=== PATIENT | female | born 2000 | race Caucasian/White ===

== ENCOUNTER 2022-11-13 14:29 | Emergency (ER) | payer OTHER ==
[~2022-11-13] VITALS: Ht 162.6 cm; Wt 127.3 kg
[2022-11-13] MEDS ORDERED: PROCHLORPERAZIN10 MG PO (16:59)
[2022-11-13] MEDS ORDERED: ACETAZOLAMIDE500 M1 PO (17:00)
[2022-11-13] MEDS ORDERED: VENLAFAXINE HCL75 MG PO (17:00)
[2022-11-13] MEDS ORDERED: PROCTOFOAM-HC 110 GM PR (17:54)
[2022-11-13 18:53] VITALS: BP 98/68
== END 2022-11-13 18:54 | disposition home or self-care (01) ==
LOC: ED 14:29
DX: K64.4 Residual hemorrhoidal skin tags (principal); Z79.899 Other long term (current) drug therapy; I10 Essential (primary) hypertension
CPT/HCPCS: 99283

== ENCOUNTER 2022-12-29 15:14 | Emergency (ER) | payer OTHER ==
[~2022-12-29] VITALS: Ht 162.6 cm; Wt 134.9 kg
--- OUTSIDE RECORDS SUMMARY | ~2022-12-29 | XMS | Continuity of Care Document ---
Demographics + + + | Address | [address] | | | [place] [address] | + + + | Preferred Language | Unknown | + + + | Marital Status | | + + + | Tenriism Affiliation | Unknown | + + + | Race | White | + + + | Ethnic Group | Not or | + + + Author + + + | Author | [facility] | + + + | Organization | [facility] | + + + | Address | [address] | | | [place], [place] [address] | + + + | Phone | | + + + Care Team Providers + + + + | Care Assistant County Attorney Name | Role | Phone | + + + + Unavailable | Unavailable | + + + + Unavailable | Unavailable | + + + + Allergies No information. Encounters No information. Functional Status No information. Immunizations No information. Medications + + + + | date | description | facility | + + + + | 2022-11-13 00:00 | PROCHLORPERAZINE MALEATE | [facility] | + + + + | 2022-11-13 00:00 | VENLAFAXINE HCL | [facility] | + + + + | 2022-11-13 00:00 | ACETAZOLAMIDE | [facility] | + + + + | 2022-11-13 00:00 | HYDROCORTISONE/PRAMOXINE | [facility] | + + + + Problems + + + + | date | description | facility | + + + + | 2022-11-13 00:00 | Hemorrhoids | [facility] | + + + + Procedures No information. Results/Labs No information. Social History + + + + | date | description | facility | + + + + | 2022-11-13 00:00 | Unknown if ever smoked | [facility] | + + + + Vital Signs + + + +---------+ | date | measurement | value | units | + + + +---------+ | 2022-11-13 00:00 | BMI | 48.2 | kg/m2 | + + + +---------+ | 2022-11-13 00:00 | BP_diastolic | 68 | mmHg | + + + +---------+ | 2022-11-13 00:00 | BP_systolic | 98 | mmHg | + + + +---------+ | 2022-11-13 00:00 | heart_rate | 90 | /min | + + + +---------+ | 2022-11-13 00:00 | height_metric | 162.56 | cm | + + + +---------+ | 2022-11-13 00:00 | height_standard | 64 | in | + + + +---------+ | 2022-11-13 00:00 | o2_saturation | 99 | % | + + + +---------+ | 2022-11-13 00:00 | respiration_rate | 17 | /min | + + + +---------+ | 2022-11-13 00:00 | temperature_metric | 36.83 | C | | | | | | + + + +---------+ | 2022-11-13 00:00 | | 98.3 | F | | | temperature_standar | | | | | d | | | + + + +---------+ | 2022-11-13 00:00 | weight_metric | 127.3 | kg | + + + +---------+ | 2022-11-13 00:00 | weight_standard | 280.65 | lb | + + + +---------+"
--- OUTSIDE RECORDS SUMMARY | ~2022-12-29 | XMS | Continuity of Care Document ---
Demographics + + + | Address | [address] | | | [place] [address] | + + + | Preferred Language | Unknown | + + + | Marital Status | | + + + | Yazidism Affiliation | Unknown | + + + | Race | White | + + + | Ethnic Group | Not or | + + + Author + + + | Author | [facility] | + + + | Organization | [facility] | + + + | Address | [address] | | | [place], [place] [address] | + + + | Phone | | + + + Care Team Providers + + + + | Care Firer Watertender Name | Role | Phone | + + + + Unavailable | Unavailable | + + + + Unavailable | Unavailable | + + + + Allergies No information. Encounters No information. Functional Status No information. Immunizations No information. Medications + + + + | date | description | facility | + + + + | 2022-11-13 00:00 | PROCHLORPERAZINE MALEATE | [facility] | + + + + | 2022-11-13 00:00 | VENLAFAXINE HCL | [facility] | + + + + | 2022-11-13 00:00 | ACETAZOLAMIDE | [facility] | + + + + | 2022-11-13 00:00 | HYDROCORTISONE/PRAMOXINE | [facility] | + + + + Problems + + + + | date | description | facility | + + + + | 2022-11-13 00:00 | Hemorrhoids | [facility] | + + + + Procedures No information. Results/Labs No information. Social History + + + + | date | description | facility | + + + + | 2022-11-13 00:00 | Unknown if ever smoked | [facility] | + + + + Vital Signs [...]
[~2022-12-29 15:14] MED LIST: ACETAZOLAMIDE500 M1 PO; PROCHLORPERAZIN10 MG PO; PROCTOFOAM-HC 110 GM PR; VENLAFAXINE HCL75 MG PO
[2022-12-29] MEDS ORDERED: PROMETHAZINE HC25 M1 PO (18:44)
[2022-12-29 18:57] VITALS: BP 110/73
== END 2022-12-29 18:58 | disposition home or self-care (01) ==
LOC: ED 15:14
DX: O20.0 Threatened abortion (principal); Z3A.01 Less than 8 weeks gestation of pregnancy; Z79.899 Other long term (current) drug therapy
CPT/HCPCS: 36415; 76801; 76817; 84702; 85025; 86900; 86901; 99284 25

== ENCOUNTER 2023-07-19 15:20 | Inpatient (IN) | payer OTHER ==
[~2023-07-19] VITALS: Ht 162.6 cm; Wt 127.5 kg
[~2023-07-19 15:20] MED LIST changes: +PROMETHAZINE HC25 M1 PO
[2023-07-30] MEDS ORDERED: LACTATED RINGER'S 1,000 ML IV SCH ×2 (05:00→10:26)
[2023-07-30] MEDS ORDERED: LACTATED RINGER'S 2,000 ML IV PRN (05:00)
[2023-07-30] MEDS ORDERED: SOD+POT BICARB/CITRIC ACID 2 EA TABLET.EFF PO SCH (07:00)
[2023-07-30] MEDS ORDERED: CEFAZOLIN SODIUM 3 GM/30 ML SYR IV SCH (07:00)
[2023-07-30] MEDS ORDERED: SOD+POT BICARB/CITRIC ACID 2 EA TABLET.EFF PO ONE (07:15)
[2023-07-30] MEDS ORDERED: CEFAZOLIN SODIUM 2 GM/20 ML SYR IV ONE (07:15)
[2023-07-30 07:47] LABS: HEMATOCRIT 32.9 % (35.0-50.0); HEMOGLOBIN 11.3 g/dL (12.0-18.0); MCHC 34.4 g/dl (30-36); MCV 84.4 fl (81-99); RBC 3.89 M/ul (4.3-5.7)
[2023-07-30 08:29] LABS: ABO O; ANTIBODY SCREEN NEGATIVE; RH POSITIVE
[2023-07-30 08:42] LABS: AMPHETAMINES, URINE NEGATIVE (NEGATIVE); BARBITURATES, URINE NEGATIVE (NEGATIVE); BENZODIAZEPINE, URINE NEGATIVE (NEGATIVE); BUPRENORPHINE, URINE NEGATIVE (NEGATIVE); CANNABINOID, URINE NEGATIVE (NEGATIVE); COCAINE, URINE NEGATIVE (NEGATIVE); ECSTASY, URINE NEGATIVE (NEGATIVE); FENTANYL, URINE NEGATIVE (NEGATIVE); METHADONE, URINE NEGATIVE (NEGATIVE); OPIATES, URINE NEGATIVE (NEGATIVE); OXYCODONE, URINE NEGATIVE (NEGATIVE); PHENCYCLIDINE, URINE NEGATIVE (NEGATIVE)
[2023-07-30 08:52] VITALS: BP 105/63
[2023-07-30] MEDS ORDERED: KETOROLAC TROMETHAMINE 30 MG/ML VIAL ONE (08:58)
[2023-07-30] MEDS ORDERED: BUPIVACAINE 0.75% IN DEXTROSE 2 ML AMP ONE (08:58)
[2023-07-30] MEDS ORDERED: ondansetron HCL 4 MG/2 ML VIAL ONE (08:58)
[2023-07-30] MEDS ORDERED: DEXAMETHASONE SOD PHOS 4 MG/ML VIAL ONE ×2 (08:58→10:20)
[2023-07-30] MEDS ORDERED: SODIUM CHLORIDE 0.9% 60 ML IV ONE (08:58)
[2023-07-30] MEDS ORDERED: OXYTOCIN 10 UNITS/ML VIAL ONE (08:58)
[2023-07-30] MEDS ORDERED: PHENYLEPHRINE HCL 10 MG/ML VIAL ONE (08:59)
[2023-07-30] MEDS ORDERED: LIDOCAINE HCL 2% 5 ML SDV ONE (08:59)
[2023-07-30] MEDS ORDERED: ePHEDrine sulfate 50 MG/ML AMP ONE (08:59)
[2023-07-30] MEDS ORDERED: fentaNYL citrate 100 MCG/2 ML VIAL ONE (09:01)
[2023-07-30] MEDS ORDERED: droPERidol 5 MG/2 ML VIAL ONE (09:58)
[2023-07-30] MEDS ORDERED: ACETAMINOPHEN 1,000 MG/100 ML VIAL ONE (10:04)
[2023-07-30] MEDS ORDERED: Ropivacaine HCl 0.5% 30 ML VIAL ONE (10:15)
[2023-07-30] MEDS ORDERED: SODIUM CHLORIDE 0.9% 20 ML IV ONE (10:15)
[2023-07-30] MEDS ORDERED: diphenhydrAMINE HCL 50 MG/ML VIAL ONE (10:16)
[2023-07-30] MEDS ORDERED: dexmedeTOMIDine HCl 200 MCG/2 ML VIAL ONE (10:20)
[2023-07-30] MEDS ORDERED: bisacodyL 10 MG SUPP PR PRN (10:30)
[2023-07-30] MEDS ORDERED: PROCHLORPERAZINE EDISYLATE 10 MG/2 ML VIAL IV PRN (10:30)
[2023-07-30] MEDS ORDERED: PROMETHAZINE HCL 25 MG SUPP PR PRN (10:30)
[2023-07-30] MEDS ORDERED: HYDROCODONE/ACETA 5/325 TAB PO PRN (10:30)
[2023-07-30] MEDS ORDERED: METOCLOPRAMIDE HCL 10 MG/2 ML SDV IV PRN (10:30)
[2023-07-30] MEDS ORDERED: OXYTOCIN/0.9 % SODIUM CHLORIDE 500 ML IV SCH (10:30)
[2023-07-30] MEDS ORDERED: OXYCODONE HCL 5 MG TAB PO PRN (10:30)
[2023-07-30] MEDS ORDERED: LIDOCAINE 2% VISCOUS 6 ML SYR TOP ONE (10:30)
[2023-07-30] MEDS ORDERED: OXYCODONE/APAP 5/325 TAB PO PRN (10:30)
[2023-07-30] MEDS ORDERED: ondansetron HCL 4 MG/2 ML VIAL IV PRN ×3 (10:30→11:00)
[2023-07-30] MEDS ORDERED: PROMETHAZINE HCL 25 MG TAB PO PRN (10:30)
[2023-07-30] MEDS ORDERED: LACTATED RINGER'S 1,000 ML IV ONE (10:43)
[2023-07-30] MEDS ORDERED: diphenhydrAMINE HCL 50 MG/ML VIAL IV PRN ×2 (11:00)
[2023-07-30] MEDS ORDERED: MORPHINE SULFATE 4 MG/ML VIAL IV PRN (11:00)
[2023-07-30] MEDS ORDERED: HYDROmorphone HCL 1 MG/ML SYR IV PRN (11:00)
[2023-07-30] MEDS ORDERED: NALOXONE HCL 0.4 MG SYR IV PRN ×2 (11:00)
[2023-07-30] MEDS ORDERED: SIMETHICONE 125 MG TABLET CHEWABLE PO SCH (11:00)
[2023-07-30] MEDS ORDERED: KETOROLAC TROMETHAMINE 30 MG/ML VIAL IV PRN (11:00)
[2023-07-30] MEDS ORDERED: IBLOOD GLUCOSE TEST STRIP 1 EA TEST VI PRN (11:00)
[2023-07-30] MEDS ORDERED: fentaNYL citrate 100 MCG/2 ML VIAL IV PRN (11:00)
[2023-07-30 11:41] VITALS: BP 96/56
--- NOTE | 2023-07-30 11:53 | NUR ---
07/30/23 1153 Kim Bhatt 1044 PT ARRIVED IN PACU WIDE AWAKE. C/O ABD PAIN WITH FUNDAL MASSAGE. 1050 MOM HOLDING BABY. 1055 C/O ITCHING ON ARMS/CHEST. ANESTHESIA GAVE BENADRYL AT END OF CASE. 1100 MOM RESTING. DAD HOLDING BABY. 1105 TAKING SMALL SIPS OF WATER. 1111 REPORT GIVEN TO [facility] RN. BED PLUGGED IN. NO C/O'S OF PAIN OR ITCHING AT THIS TIME.
[2023-07-30] MEDS ORDERED: KETOROLAC TROMETHAMINE 30 MG/ML VIAL IV SCH (14:00)
[2023-07-30] MEDS ORDERED: ENOXAPARIN SODIUM 40 MG/0.4 ML SYR SUB-Q SCH (16:00)
[2023-07-30] MEDS ORDERED: SENNOSIDES/DOCUSATE 1 EA TAB PO SCH (21:00)
[2023-07-31 05:23] LABS: HEMATOCRIT 26.8 % (35.0-50.0); MCH 28.7 (27-36); MCHC 33.7 g/dl (30-36); MCV 85.3 fl (81-99); RBC 3.14 M/ul (4.3-5.7); RDW 14.9 (10.5-15.0)
[2023-07-31] MEDS ORDERED: ondansetron HCL 4 MG/2 ML VIAL IV PRN (11:00)
--- NOTE | 2023-07-31 12:50 | PR ---
[facility] [address] [place], [place] [address] Signed PP Progress Notes Datetime Report Generated by CPN: 07/31/2023 12:50 SUBJECTIVE: [id number] Pain: Within Normal Limits Nausea/Vomiting: Denies Flatus: Yes Bowel Movement: No Vital Signs: [id number] Vital Signs: Reviewed; Within Normal Limits Cardiovascular: Normal Respiratory: Normal Abdomen/Uterus: Normal Lochia: Normal Vulva/Perineum: Not Done Breasts: Not Done CVA Tenderness: Normal Extremities: Normal Incision: Normal Progress: Normal Exam Comments: Fundus firm U-2 nontender. Incision dry and bandaged IMPRESSION/PLAN/PROCEDURES: [id number] Impression: Normal Progression Plan: Continue Present Management Progress Notes: Pt seen and examined. Doing well. Ambulating, voiding, and tolerating full diet. Pain and lochia minimal. No concerns. Anticipate d/c tomorrow. Signing Physician: Donna Chou DO Copies: ~ *Electronically Signed* 07/31/23 0111 DONNA CHOU (ZORA) DO PATIENT NAME: ANANTH BHATIA PROGRESS NOTE DATE OF : [birth year] PHYSICIAN: DONNA CHOU (ZORA) DO RPT #: [id number] REPORT IS CONFIDENTIAL AND NOT TO BE RELEASED WITHOUT AUTHORIZATION
[2023-07-31] MEDS ORDERED: IBUPROFEN 600 MG TAB PO SCH (14:00)
--- NOTE | 2023-08-01 08:01 | OR ---
[facility] [address] [place], [place] [address] Signed DATE OF OPERATION: 07/30/2023 SURGEON: Donna Chou DO PREOPERATIVE DIAGNOSES: 1. Intrauterine at 37 weeks 6 days gestation. 2. Gestational diabetes mellitus suboptimally controlled with insulin. 3. Morbid obesity. 4. Intracranial hypertension. 5. Lysis of adhesions. POSTOPERATIVE DIAGNOSES: 1. Intrauterine at 37 weeks 6 days gestation. 2. Gestational diabetes mellitus suboptimally controlled with insulin. 3. Morbid obesity. 4. Intracranial hypertension. PROCEDURES PERFORMED: 1. Repeat low transverse delivery. 2. Bilateral salpingectomy. PROCEDURE: Spinal with postoperative tap block. BOARDER HAND: Stephy Farfan MD ESTIMATED BLOOD LOSS: 600 mL. COMPLICATIONS: None. DRAINS: Downey to gravity. SPECIMEN: Bilateral fallopian tubes. FINDINGS: Electronically Signed By: DONNA CHOU DO (JD) 08/01/23 0801 PATIENT NAME: ANANTH BHATIA OPERATIVE REPORT DATE OF : [birth year] REPORT #: [id number] PHYSICIAN: DONNA CHOU DO (JD) PCP: JUAQUIN BENOIT REPORT IS CONFIDENTIAL AND NOT TO BE RELEASED WITHOUT AUTHORIZATION [address] [address] Signed Delivery of viable female born in the ROP position via a low transverse uterine incision, weighing 6 pounds 2 ounces with Apgars of 8 and 9. Normal ovaries and tubes. The uterus remarkable for 5 cm anterior lower segment intramural fibroid. INDICATIONS: Ms. Bhatia is a very pleasant 23-year-old, G 5, P 2, with intrauterine at 37 weeks six days gestation who presented to Labor and delivery for scheduled repeat low transverse delivery and bilateral salpingectomy. was complicated by suboptimally controlled insulin-dependent diabetes with borderline polyhydramnios as well as intracranial hypertension, morbid obesity. The patient strongly desired opportunistic bilateral salpingectomy. Risks, benefits, and alternatives were discussed in detail with the patient. The patient understands and wishes to proceed with the procedure. TECHNIQUE: The patient was taken the OR where a time-out was performed to confirm correct patient and correct procedure. Spinal anesthesia was adequately established and the patient was prepped and draped in the supine position with a bump under the right hip. Downey catheter was inserted. ICPs were running and the patient received 3 g of Ancef preoperatively per SCIP protocol. No heparin was administered. Once neuraxial anesthesia was noted to be adequate, a Pfannenstiel skin incision was made through the prior scar and carried down to the fascia. The fascia was nicked in the midline and fascial incision was extended bilaterally using curved Calderón scissors. The rectus muscles were divided from the fascia with combination of blunt and sharp dissection and significant adhesions were noted at this point. The rectus muscle was then divided in the midline with blunt dissection. The peritoneum was entered bluntly. Peritoneal incision was extended with blunt and sharp dissection in a cephalad and caudad manner. Omental adhesions were noted to the anterior portion of the peritoneal incision and these were ligated with the LigaSure Impact device. No other intraabdominal adhesions were noted. The Mario self retractor was placed and the lower uterine segment was identified. Hysterotomy was performed using a surgical scalpel and hysterotomy was extended bilaterally using blunt dissection. The amnion was ruptured for clear fluid and the surgeon's hand was placed inside the uterine cavity. The vertex was elevated in the ROP position and delivered with the assistance of fundal pressure. No nuchal cord was identified. The remainder of the delivered easily and was vigorous and cried upon delivery. Cord was doubly clamped and cut. The handed to the waiting pediatric team for further care. Cord blood was obtained for a routine analysis. The placenta was expressed, intact with a centrally inserted three-vessel cord and the uterine cavity was cleared of any remaining products of conception clot. Hysterotomy was repaired in two layers, the first being a running locked layer of 0 Monocryl and the second being a running nonlocked imbricating layer in the vertical manner. The pelvis was irrigated, found to be hemostatic. Exploration of Electronically Signed By: DONNA ELAM) DO KRISTEL 08/01/23 0801 PATIENT NAME: ANANTH BHATIA OPERATIVE REPORT DATE OF : [birth year] REPORT #: [id number] PHYSICIAN: DONNA CHOU DO (JD) PCP: JUAQUIN BENOIT REPORT IS CONFIDENTIAL AND NOT TO BE RELEASED WITHOUT AUTHORIZATION [address] [address] Signed the uterine cavity before closure of the hysterotomy that demonstrated a 5 cm intramural fibroid in the anterior uterine wall in the lower uterine segment. This did not impact the hysterotomy closure and it was left in place. After hysterotomy was repaired, attention was turned to bilateral salpingectomy. The patient again confirmed her desire for bilateral salpingectomy. The right tube was grasped at the fimbriated end with Yann and elevated and divided along the mesosalpinx using LigaSure Impact device. Excellent hemostasis was appreciated and the entire fallopian tube was dissected and transected at the cornua. The tube was sent to Pathology for further evaluation. The process was repeated on the left with division of the left fallopian tube along the mesosalpinx and amputation of the cornu. Excellent hemostasis was appreciated. The pelvis was again irrigated and found to be hemostatic. The peritoneum was then closed after removal of the Mario self retractor. Closure was with 2-0 Vicryl in a running nonlocked manner. The rectus was irrigated and made hemostatic with judicious use of Bovie electrocautery. The rectus was then plicated loosely in the midline with three interrupted sutures of 0 Vicryl. ACell was applied to the rectus sheath due to the significant scarring and raw appearance of the rectus. The fascia was reapproximated using 0 Vicryl in a running nonlocked manner. Subcu was irrigated, made hemostatic with judicious use of Bovie electrocautery and closed with 3-0 Vicryl. The skin was reapproximated with surgical tawnya. The uterus was Crede'd for a scant amount of blood and the patient remained in the PACU for a postoperative tap block per Anesthesia. Sponge, needle, and instrument count was correct x2 at the end the procedure. Dr. Farfan was present and participated in all portions of the procedure. DO DOREEN Guerrero/MODL /[id number] Copies: ~ Electronically Signed By: DONNA CHOU DO (JD) 08/01/23 0801 PATIENT NAME: ANANTH BHATIA OPERATIVE REPORT DATE OF : [birth year] REPORT #: [id number] PHYSICIAN: DONNA CHOU (ZORA) DO PCP: JUAQUIN BENOIT REPORT IS CONFIDENTIAL AND NOT TO BE RELEASED WITHOUT AUTHORIZATION
--- NOTE | 2023-08-01 13:10 | PR ---
[facility] [address] [place], [place] [address] Signed PP Progress Notes Datetime Report Generated by CPN: 08/01/2023 13:10 SUBJECTIVE: [id number] Pain: Within Normal Limits Nausea/Vomiting: Denies Flatus: Yes Bowel Movement: No Vital Signs: [id number] Vital Signs: Reviewed; Within Normal Limits Cardiovascular: Normal Respiratory: Normal Abdomen/Uterus: Normal Lochia: Normal Vulva/Perineum: Not Done Breasts: Not Done CVA Tenderness: Normal Extremities: Normal Incision: Normal Progress: Normal Exam Comments: Fundus firm U-2 nontender. Incision healing well IMPRESSION/PLAN/PROCEDURES: [id number] Impression: Normal Progression Other Impression: acute blood loss anemia- asymptomatic Plan: Discharge Progress Notes: Pt seen and examined. Doing well. Ambulating, voiding, and tolerating full diet. Pain and lochia minimal. well. No fevers/chills/lightheadedness. Desires d/c home. Reviewed d/c meds and instructions. S/P bilateral salpingectomy. All questions answered. F/U early next week for staple removal Signing Physician: Donna Chou DO Copies: ~ *Electronically Signed* 08/01/23 9835 DONNA CHOU (ZORA) DO PATIENT NAME: ANANTH BHATIA PROGRESS NOTE DATE OF : [birth year] PHYSICIAN: DONNA CHOU (JD) DO RPT #: [id number] REPORT IS CONFIDENTIAL AND NOT TO BE RELEASED WITHOUT AUTHORIZATION
--- NOTE | 2023-08-01 16:47 | PATH ---
[facility] [address] [place], [place] [address] Signed SPECIMEN(S): A PORTIONS BILATERAL FALLOPIAN TUBES SPECIMEN SOURCE: A. PORTIONS BILATERAL FALLOPIAN TUBES CLINICAL HISTORY: Repeat FINAL PATHOLOGIC DIAGNOSIS: Portions of bilateral fallopian tubes: - Two segments of benign fimbriated oviduct. JVR:emir MICROSCOPIC EXAMINATION: Histologic sections of all submitted blocks are examined by light microscopy. These findings, together with the gross examination, support the pathologic diagnosis. GROSS DESCRIPTION: The specimen, labeled and designated "Bhatia, S" and designated on the requisition "portion of fallopian tubes, bilateral," is received in formalin and consists of two undesignated fallopian tubes that measure 9.0 x 1.1 cm and 8.6 x 0.9 cm. The serosal surfaces are violaceous and smooth with delicate fimbriae. One tube is arbitrarily inked. Fimbriae are entirely submitted. Director Workers Compensation sections are submitted in (A1-A2). FB (under the direct supervision of a pathologist) The Gross Description was prepared using a voice recognition system. The report was reviewed for accuracy; however, sound-alike word errors, addition and/or deletions may occur. If there is any question about this report, please contact Client Services. PERFORMING LABORATORY: Technical component was performed by [facility], [address] [place] [id number] (CLIA# [id number]). Professional interpretation was performed by [facility], [address] [place] [phone] (CLIA#: [id number]). Diagnostician: Saul Cassidy MD Pathologist Electronically Signed 08/01/2023 PATIENT NAME: ANANTH BHATIA PATHOLOGY DATE OF : [birth year] REPORT #: [id number] PHYSICIAN: [facility] PCP: JUAQUIN BENOIT REPORT IS CONFIDENTIAL AND NOT TO BE RELEASED WITHOUT AUTHORIZATION [address] [address] Signed Copies: ~ PATIENT NAME: ANANTH BHATIA PATHOLOGY DATE OF : [birth year] REPORT #: [id number] PHYSICIAN: [facility] PCP: JUAQUIN BENOIT REPORT IS CONFIDENTIAL AND NOT TO BE RELEASED WITHOUT AUTHORIZATION
[2023-08-02] MEDS ORDERED: SERTRALINE HCL50 MG PO (04:19)
[2023-08-02] MEDS ORDERED: HYDROCODON-ACE1 EA10 PO (04:19)
[2023-08-02] MEDS ORDERED: IBUPROFEN800 MG PO (04:19)
[2023-08-02] MEDS ORDERED: FEROSUL325 MG PO (04:19)
== END 2023-08-01 14:15 | disposition home or self-care (01) | DRG 784 ==
LOC: FBC 07-30 06:57
PROVIDERS: Obstetrics & Gynecology; ADMIT Obstetrics & Gynecology; ATTEND Obstetrics & Gynecology
PROC: 10D00Z1 Extraction of Products of Conception, Low, Open Approach (ICD-10-PCS; principal; 2023-07-30 10:30)
PROC: 0UB70ZZ Excision of Bilateral Fallopian Tubes, Open Approach (ICD-10-PCS; 2023-07-30 10:30)
DX: O34.211 Maternal care for low transverse scar from previous cesarean delivery (principal); D62 Acute posthemorrhagic anemia; O24.424 Gestational diabetes mellitus in childbirth, insulin controlled; Z3A.37 37 weeks gestation of pregnancy; Z37.0 Single live birth; O99.214 Obesity complicating childbirth; E66.01 Morbid (severe) obesity due to excess calories; O16.4 Unspecified maternal hypertension, complicating childbirth; O90.81 Anemia of the puerperium; O77.0 Labor and delivery complicated by meconium in amniotic fluid; O99.824 Streptococcus B carrier state complicating childbirth; O99.62 Diseases of the digestive system complicating childbirth; K66.0 Peritoneal adhesions (postprocedural) (postinfection); O34.13 Maternal care for benign tumor of corpus uteri, third trimester; Z30.2 Encounter for sterilization
CPT/HCPCS: 01961; 36415; 76942; 80307; 85027; 86850; 86900; 86901; A9270; J0131; J0690; J1100; J1200; J1650; J1790; J1885; J2001; J2371; J2405; J2590; J2795; J3010; J7121

== ENCOUNTER 2023-08-02 04:07 | Emergency (ER) | payer OTHER ==
[~2023-08-02] VITALS: Ht 152.4 cm; Wt 124.0 kg
[2023-08-02] MEDS ORDERED: FEROSUL325 MG PO (04:19)
[2023-08-02] MEDS ORDERED: HYDROCODON-ACE1 EA10 PO (04:19)
[2023-08-02] MEDS ORDERED: IBUPROFEN800 MG PO (04:19)
[2023-08-02] MEDS ORDERED: SERTRALINE HCL50 MG PO (04:19)
[2023-08-02 04:42] LABS: PH, VENOUS 7.303 (7.31-7.41)
[2023-08-02 04:47] LABS: BASOPHILS 0.2 % (0-2); EOSINOPHILS 1.2 % (0-6); HEMATOCRIT 28.8 % (35.0-50.0); HEMOGLOBIN 9.7 g/dL (12.0-18.0); LYMPHOCYTES 20.5 % (24-44); MCH 29.1 (27-36); MCHC 33.7 g/dl (30-36); MCV 86.1 fl (81-99); MONOCYTES 6.7 % (0-12); NEUTROPHILS 71.4 % (39-80); PLATELET COUNT 309 K/uL (140-440); RBC 3.35 M/ul (4.3-5.7)
[2023-08-02 05:00] LABS: ALBUMIN 2.2 g/dL (3.4-5.0); ALBUMIN/GLOBULIN RATIO 0.54 (1.1-2.4); ANION GAP 17.3 (7-21); BILIRUBIN, TOTAL 0.4 ng/dL (0.2-1.0); BUN/CREATININE RATIO 11.9 (6.0-28.6); CALCIUM 8.7 mg/dL (8.5-10.1); CREATININE, SERUM 0.84 mg/dL (0.55-1.02); POTASSIUM 3.3 mmol/L (3.5-5.1); PROTEIN, TOTAL 6.3 g/dL (6.4-8.2)
[2023-08-02 05:09] LABS: INFLUENZA B NAA NEGATIVE (NEGATIVE); RESPIRATORY SYNCYTIAL VIR NAA NEGATIVE (NEGATIVE)
--- NOTE | 2023-08-03 11:57 | EKG ---
[facility] [address] [facility] [place], [place] [address] Signed Normal sinus rhythm with sinus arrhythmia Normal ECG No previous ECGs available Confirmed by Bre Braxton MD ([id number]) on 08/03/2023 11:56:53 AM Electronically Signed By: BRE BRAXTON 08/03/23 1157 PATIENT NAME: ANANTH BHATIA Electrocardiogram DATE OF : [birth year] PHYSICIAN: BRE BRAXTON REPORT #: [id number] REPORT IS CONFIDENTIAL AND NOT TO BE RELEASED WITHOUT AUTHORIZATION
== END 2023-08-02 06:15 | disposition home or self-care (01) ==
LOC: ED 04:07
PROVIDERS: Family Medicine
DX: J98.11 Atelectasis (principal); D64.9 Anemia, unspecified; G93.2 Benign intracranial hypertension; K58.9 Irritable bowel syndrome, unspecified; Z11.52 Encounter for screening for COVID-19; Z79.899 Other long term (current) drug therapy; Z98.890 Other specified postprocedural states
CPT/HCPCS: 36415; 71045; 71260; 80053; 82803; 85025; 85379; 87502; 93005; 93010; 99285-25; Q9967; U0002

== ENCOUNTER 2024-06-04 15:46 | Emergency (ER) | payer OTHER ==
[~2024-06-04] VITALS: Ht 152.4 cm; Wt 135.6 kg
[~2024-06-04 15:46] MED LIST changes: +FEROSUL325 MG PO; +HYDROCODON-ACE1 EA10 PO; +IBUPROFEN800 MG PO; +ONDANSETRON ODT8 MG PO; +SERTRALINE HCL50 MG PO
[2024-06-04] MEDS ORDERED: OMEPRAZOLE20 MG PO (16:05)
[2024-06-04] MEDS ORDERED: ACETAZOLAMIDE500 M1 PO (16:05)
[2024-06-04 16:30] LABS: BASOPHILS 0.4 % (0-2); EOSINOPHILS 0.6 % (0-6); HEMATOCRIT 37.4 % (35.0-50.0); HEMOGLOBIN 12.2 g/dL (12.0-18.0); MCH 25.5 (27-36); MCHC 32.7 g/dl (30-36); MCV 77.9 fl (81-99); MONOCYTES 4.8 % (0-12); NEUTROPHILS 66.2 % (39-80); PLATELET COUNT 334 K/uL (140-440); RDW 17.5 (10.5-15.0)
[2024-06-04 16:44] LABS: ALBUMIN 3.7 g/dL (3.4-5.0); ALBUMIN/GLOBULIN RATIO 0.97 (1.1-2.4); ANION GAP 15.7 (7-21); BILIRUBIN, TOTAL 0.3 ng/dL (0.2-1.0); BUN/CREATININE RATIO 12.12 (6.0-28.6); CALCIUM 8.6 mg/dL (8.5-10.1); CREATININE, SERUM 0.99 mg/dL (0.55-1.02); POTASSIUM 3.7 mmol/L (3.5-5.1); PROTEIN, TOTAL 7.5 g/dL (6.4-8.2)
[2024-06-04 17:56] VITALS: BP 116/69
== END 2024-06-04 17:56 | disposition home or self-care (01) ==
LOC: ED 15:46
PROVIDERS: Emergency Medicine
DX: K92.1 Melena (principal); Z79.899 Other long term (current) drug therapy
CPT/HCPCS: 36415; 80053; 85025; 99283

== ENCOUNTER 2025-04-23 08:29 | Emergency (ER) | payer OTHER ==
[~2025-04-23] VITALS: Ht 152.4 cm; Wt 115.9 kg
[~2025-04-23 08:29] MED LIST changes: +OMEPRAZOLE20 MG PO
--- OUTSIDE RECORDS SUMMARY | 2025-04-23 08:36 | XMS ---
PreManage Notification: ANANTH BHATIA Security Barrel Brander Events No recent Security Events currently on file CRITERIA MET - Group Notification [facility]: [facility] Current FAMILY PHONE: [phone] JUAQUIN BENOIT Nurse Practitioner: Current PHONE: [phone] [facility] has no Care Guidelines for this patient. EAlissa VISIT COUNT (12 MO.) [facility] [place] TOTAL 3 NOTE: Visits indicate total known visits. ED/UCC VISIT TRACKING (12 MO.) 04/23/2025 08:30 [facility] [place] TYPE: Emergency COMPLAINT: - NECK PAIN/INJURY 08/04/2024 15:30 [facility] [place] TYPE: Emergency COMPLAINT: - ABDOMINAL PAIN 06/04/2024 15:46 [facility] [place] TYPE: Emergency COMPLAINT: - BLOOD IN STOOL DIAGNOSES: - Hemorrhage of anus and rectum - Melena - Other exterminator helper termite (current) drug therapy INPATIENT VISIT TRACKING (12 MO.) No inpatient visits to display in this time frame [email or web address]
[2025-04-23] MEDS ORDERED: ASPERCREME1 EACH TD (13:02)
[2025-04-23] MEDS ORDERED: CYCLOBENZAPRINE10 MG PO (13:02)
[2025-04-23] MEDS ORDERED: IBU600 MG PO (13:02)
[2025-04-23] MEDS ORDERED: CYCLOBENZAPRINE HCL 10 MG TAB PO ONE (13:15)
[2025-04-23] MEDS ORDERED: LIDOCAINE HCL 4% 1 EACH PATCH TD ONE (13:15)
[2025-04-23] MEDS ORDERED: KETOROLAC TROMETHAMINE 15 MG/ML VIAL IM ONE (13:15)
[2025-04-23 13:53] VITALS: BP 96/60
[2025-04-23] MEDS ORDERED: LIDOCAINE PATCH REMOVAL 1 EA TD SCH (21:00)
== END 2025-04-23 13:51 | disposition home or self-care (01) ==
LOC: ED 08:29
DX: M43.6 Torticollis (principal); Z79.899 Other long term (current) drug therapy
CPT/HCPCS: 72125; 96372; 99283-25; A9270; J1885